=== PATIENT | female | born 1995 | race Two or more races ===

== ENCOUNTER 2022-07-10 23:05 | Emergency (ER) | payer BC ==
[~2022-07-10] VITALS: Ht 154.9 cm; Wt 74.8 kg
[2022-07-10] MEDS ORDERED: diphenhydrAMINE 25 MG CAP PO ONE ×2 (23:34→23:45)
--- NOTE | 2022-07-10 23:37 | NUR ---
PO Benadryl 25mg administered for itchness and prescribed.
[2022-07-11 00:37] VITALS: BP 132/81
--- NOTE | 2022-07-11 00:39 | NUR ---
Discharged home - stable at the time of this report
[2022-07-11] MEDS ORDERED: EPIN0.3P3 IM (00:42)
== END 2022-07-11 00:55 | disposition home or self-care (01) ==
LOC: ER 23:05
DX: T78.40XA Allergy, unspecified, initial encounter (principal); E28.2 Polycystic ovarian syndrome; Z91.018 Allergy to other foods; Z79.899 Other long term (current) drug therapy; Y92.89 Other specified places as the place of occurrence of the external cause
CPT/HCPCS: 99282; Q0163; A4663